=== PATIENT | male | born 1970 | race Caucasian/White ===

== ENCOUNTER 2017-02-17 12:41 | Emergency (ER) | payer BC ==
[~2017-02-17] VITALS: Ht 180.3 cm; Wt 124.7 kg
[2017-02-17] MEDS ORDERED: IV NORMAL SALINE 1000ML BAG 1,000 ML IV SCH (13:13)
[2017-02-17] MEDS ORDERED: 0.9 % SODIUM CHLORIDE 10 ML DISP.SYRIN. IV PRN (13:15)
[2017-02-17] MEDS ORDERED: ONDANSETRON PF 4 MG/2 ML VIAL. IV ONE (13:15)
--- NOTE | 2017-02-17 13:21 | PHYS DOC ---
Past Medical History Past Surgical History: Other Additional Past Surgical Histo: facial reconstruction Adult General Chief Complaint Chief Complaint: NAUSEA/VOMITING/DIARRHA HPI HPI This patient is a pleasant 46-year-old male with no major medical problems no prior surgeries to presents with nausea vomiting diarrhea for one week. He comes in today because despite having attempted to keep himself well-hydrated he still having 3-5 episodes of vomiting and diarrhea today. He denies blood or bile in his vomit. He denies blood in his stool. He has had small bouts of abdominal pain in the epigastric region before the symptoms began. Symptoms do not change with food, position or breathing. Patient denies any UTI symptoms. Patient has had subjective fevers and chills earlier in the week with the symptoms began. He denies any sick contacts, denies any handling of poultry or reptiles, denies any consumption of raw fish's or recent antibiotic use. 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 Differential diagnosis of abdominal pain in the epigastric region include but not limited to pancreatitis, cholelithiasis, cholecystitis, small bowel section , large bowel injection, diverticulitis, diverticulosis, intussusception, volvulus, kidney stone, acute coronary syndrome, lower lobe pneumonia, Boerhaave syndrome, Nicole-Arnett tear, enteritis, peptic ulcer disease and gastritis. Review of Systems Review of Systems Constitutional: Subjective fevers and chills Eyes: Denies change in visual acuity, redness, or eye pain [] HENT: Denies nasal congestion or sore throat [] Respiratory: Denies cough or shortness of breath [] Cardiovascular: No additional information not addressed in HPI [] GI:. He does complain of epigastric abdominal pain with nausea and nonbilious non bloody vomiting and diarrhea nonbloody and nonmucoid. : Denies dysuria or hematuria [] Musculoskeletal: Denies back pain or joint pain [] Integument: Denies rash or skin lesions [] Neurologic: Denies headache, focal weakness or sensory changes [] Endocrine: Denies polyuria or polydipsia [] Current Medications Current Medications Current Medications Medications (Trade) Dose Ordered Sig/Kristy Start Time Stop Time Status Last Admin Dose Admin Info (Do NOT chart on this entry -- for MONITORING) 1 each PRN DAILY PRN 02/17/17 13:30 02/19/17 13:29 Iohexol (Omnipaque 300 Mg/ml) 75 ml 1X ONCE 02/17/17 13:30 02/17/17 13:31 DC Ondansetron HCl (Zofran) 4 mg 1X ONCE 02/17/17 13:15 02/17/17 13:16 DC Sodium Chloride (Normal Saline Flush) 10 ml QSHIFT PRN 02/17/17 13:15 Allergies Allergies Allergies Coded Allergies Type Severity Reaction Last Updated Verified Penicillins Allergy Intermediate Hives 02/17/17 Yes diphenhydramine Allergy Intermediate Hives 02/17/17 Yes Physical Exam Physical Exam Constitutional: Well developed, well nourished, no acute distress, non-toxic appearance. Patient is moderately obese HENT: Normocephalic, atraumatic, bilateral external ears normal, oropharynx moist, no oral exudates, nose normal. [] Eyes: PERRLA, EOMI, conjunctiva normal, no discharge. [] Neck: Normal range of motion, no tenderness, supple, no stridor. [] Cardiovascular:Heart rate regular rhythm, no murmur [] Lungs & Thorax: Bilateral breath sounds clear to auscultation [] Abdomen: Bowel sounds normal, soft, no tenderness, no masses, no pulsatile masses. [] Skin: Warm, dry, no erythema, no rash. [] Back: No tenderness, no CVA tenderness. [] Extremities: No tenderness, no cyanosis, no clubbing, ROM intact, no edema. [] Neurologic: Alert and oriented X 3, normal motor function, normal sensory function, no focal deficits noted. [] Psychologic: Affect normal, judgement normal, mood normal. [] Current Patient Data Vital Signs Vital Signs Date Time Temp Pulse Resp B/P (MAP) Pulse Ox O2 Delivery O2 Flow Rate FiO2 02/17/17 13:00 98.3 88 18 154/84 (107) 97 Room Air 98.3 EKG EKG [] Radiology/Procedures Radiology/Procedures [] Course & Med Decision Making Course & Med Decision Making Pertinent Labs and Imaging studies reviewed. (See chart for details) even before we had an IV line placed patient is made very clear that he does not want any IV medications, he does on EKG, he does not want any, abdominal imaging , he does not want any IV fluids, he does not want any area he primarily does want symptom treatment for his nausea and vomiting over the last week. Time is now 1:33 PM I discussed with the patient limitations and risks of not actually doing an evaluation and he is okay accepting this risk. Impression. Nausea vomiting diarrhea reported by history Disposition discharged home with Lomotil, Zofran and Bentyl. PCP follow-up 24-48 hours if symptoms continue. [] Dragon Disclaimer Dragon Disclaimer This electronic medical record was generated, in whole or in part, using a voice recognition dictation system. Departure Departure Impression: Primary Impression: Nausea and vomiting Additional Impressions: Diarrhea Abdominal pain Disposition: HOME, SELF-CARE Condition: STABLE Patient Instructions: Diarrhea, Nausea and Vomiting Additional Instructions: These follow-up with her primary care doctor for any routine care unit might require. Please return here if you like to complete your workup to ensure that there is no intra-abdominal catastrophe at this time. Please return if you have any questions or concerns. Scripts Diphenoxylate Hcl/Atropine (LOMOTIL TABLET) 1 Each Tablet 1 TAB PO QID, #20 TAB Prov: RAMSES ZAMORANO MD 02/17/17 Ondansetron (ZOFRAN ODT) 4 Mg Tab.rapdis 4 MG PO BID Y for NAUSEA/VOMITING for 7 Days, #14 TAB Prov: RAMSES ZAMORANO MD 02/17/17 Dicyclomine Hcl (BENTYL) 10 Mg Capsule 1 CAP PO TID, #30 CAP 3 Refills Prov: RAMSES ZAMORANO MD 02/17/17 Problem Qualifiers RAMSES ZAMORANO MD Feb 17, 2017 13:21
[2017-02-17 13:30] VITALS: BP 116/78
[2017-02-17] MEDS ORDERED: CONTRAST GIVEN MC PRN (13:30)
[2017-02-17] MEDS ORDERED: IOHEXOL 300 MG/ML 75 ML VIAL IV ONE (13:30)
[2017-02-17] MEDS ORDERED: IOHEXOL 300 MG/ML 75 ML VIAL ONE (13:37)
[2017-02-17] MEDS ORDERED: ONDA4TAB10 PO (13:38)
[2017-02-17] MEDS ORDERED: DICY10CA53 PO (13:38)
[2017-02-17] MEDS ORDERED: DIPH1TAB PO (13:38)
== END 2017-02-17 13:40 | disposition home or self-care (01) ==
LOC: ER 12:41
DX: R11.2 Nausea with vomiting, unspecified (principal); R19.7 Diarrhea, unspecified; R10.13 Epigastric pain; R50.9 Fever, unspecified; Z88.0 Allergy status to penicillin; Z88.8 Allergy status to other drugs, medicaments and biological substances
CPT/HCPCS: 99283